=== PATIENT | male | born 1965 | race Caucasian/White ===

== ENCOUNTER → 2017-09-30 | Outpatient (CLI) | payer BC ==
--- NOTE | 2017-09-30 14:49 | Diagnostic Imaging Report ---
INDICATION: Ureteral stone. TIME OF EXAMINATION: 1:54 PM. COMPARISON: No prior studies are available for comparison. FINDINGS: The bowel gas pattern is unremarkable. No definite radiopaque renal calculi are seen. There is a slightly elongated calcific density in the left hemipelvis measuring approximately 4 mm x 1-2 mm. This may represent a distal left ureteric calculus. A rounded calcific density in the right hemipelvis likely represents a phlebolith. No other abnormalities are seen. IMPRESSION: Questionable distal left ureteral calculus. The study is otherwise unremarkable. Dictated by: Dictated on workstation # [id number]
== END ==
LOC: RAD 13:24
PROVIDERS: ATTEND Urology
DX: N20.1 Calculus of ureter (principal)
CPT/HCPCS: 74018

== ENCOUNTER → 2017-10-05 | Outpatient (CLI) | payer BC ==
[~2017-10-05] MED LIST: CIPR-225 PO; HYDR-3812 PO; HYDR-3875 PO; ONDN4T PO; PHEN-640 PO; TAMS0.4C98 PO
== END ==
LOC: PREOP 10:05
PROVIDERS: ATTEND Urology
DX: Z01.818 Encounter for other preprocedural examination (principal); N20.1 Calculus of ureter

== ENCOUNTER → 2017-10-05 | Outpatient (CLI) | payer BC ==
--- NOTE | 2017-10-05 15:30 | Diagnostic Imaging Report ---
INDICATION: Left ureteral stone. TIME OF EXAMINATION: 3:06 PM. COMPARISON: 09/30/2017. FINDINGS: The previously noted calcific density in the left hemipelvis appears to be unchanged in position and is again suggestive of a distal left ureteral calculus. A small rounded calcific density in the right hemipelvis is also seen, consistent with a phlebolith. No other urinary tract calculi are detected. The bowel gas pattern is unremarkable. IMPRESSION: Stable abdominal radiograph again demonstrating a probable distal left ureteral calculus, unchanged in position when compared with the examination from 5 days earlier. Dictated by: Dictated on workstation # [id number]
== END ==
LOC: RAD 14:30
PROVIDERS: ATTEND Urology
DX: N20.1 Calculus of ureter (principal)
CPT/HCPCS: 74018

== ENCOUNTER 2017-10-06 06:20 | Day surgery (SDC) | payer BC ==
[~2017-10-06] VITALS: Ht 177.8 cm; Wt 74.9 kg
[2017-10-06 06:45] VITALS: BP 128/93
[2017-10-06] MEDS ORDERED: cefTRIAXone 1 GM/NS 100 ML IVPB IV ONE ×4 (07:00→07:45)
[2017-10-06] MEDS ORDERED: CATHETER FLUSH 10 ML SYR IV PRN ×2 (07:00→07:45)
--- NOTE | 2017-10-06 07:09 | Diagnostic Imaging Report ---
EXAM: ABDOMEN/KUB 1VIEW INDICATION: Left kidney stone. COMPARISON: Abdominal radiograph 10/05/2017. FINDINGS: Nonspecific 0.5 cm radiopaque density in the left pelvis may represent a distal left ureteral stone. The remaining radiopaque densities in the pelvis have the appearance of phleboliths. No other suspicious radiopaque findings of renal stones. Nonspecific bowel gas pattern. No acute osseous findings. IMPRESSION: A 0.5 cm radiopaque density in the left pelvis is stable, possibly representing a distal left ureteral stone. Dictated by: Dictated on workstation # [id number]
--- NOTE | 2017-10-06 07:13 | Progress Note-Pre Operative ---
Pre-Operative Progress Note H&P Reviewed The H&P was reviewed, patient examined and no changes noted. Date Seen by Provider: Oct 06, 2017 Time Seen by Provider: 07:12 Date H&P Reviewed: Oct 06, 2017 Time H&P Reviewed: 07:12 Pre-Operative Diagnosis: LT DISTAL URETERAL AND RT RENAL STONES EYAD COLEY MD Oct 06, 2017 7:13 am
[2017-10-06] MEDS ORDERED: HYDR-3812 PO (07:59)
[2017-10-06] MEDS ORDERED: ONDN4T PO (07:59)
[2017-10-06] MEDS ORDERED: CIPR-225 PO ×2 (07:59→10:26)
[2017-10-06] MEDS ORDERED: TAMS0.4C98 PO ×2 (07:59→10:26)
[2017-10-06] MEDS ORDERED: LACTATED RINGERS 1,000 ML IV SCH (08:00)
[2017-10-06] MEDS ORDERED: ROCURONIUM 10 MG/ML 5 ML SYRINGE IV ONE (08:02)
[2017-10-06] MEDS ORDERED: proPOfol 200 MG/20 ML (DIPRIVAN) VIAL IV ONE (08:02)
[2017-10-06] MEDS ORDERED: LIDOCAINE PF 2% 5 ML (XYLOCAINE) VIAL ONE (08:02)
[2017-10-06] MEDS ORDERED: ONDANSETRON 4 MG/2 ML (SDV) Z0FRAN ONE (08:02)
[2017-10-06] MEDS ORDERED: MIDAZOLAM 2 MG/2 ML (VERSED) VIAL ONE (08:02)
[2017-10-06] MEDS ORDERED: fentaNYL INJECTION 100 MCG/2 ML AMP ONE (08:03)
[2017-10-06] MEDS ORDERED: SEVOFLURANE (ULTANE) 15 ML INHAL SOLN ONE ×2 (08:42→08:52)
[2017-10-06] MEDS ORDERED: NEOSTIGMINE 1 MG/ML 5 ML SYRINGE ONE (08:51)
[2017-10-06] MEDS ORDERED: GLYCOPYRROLATE 0.2 MG/ML (ROBINUL) 2 ML VIAL ONE (08:51)
--- NOTE | 2017-10-06 09:07 | Progress Note-Post Operative ---
Post-Operative Progess Note Surgeon (s)/Lang Interpreter (s) Surgeon EYAD COLEY MD Lang Interpreter: SAME Pre-Operative Diagnosis LT DISTAL URETERAL AND RT RENAL STONES Post-Operative Diagnosis SAME Procedure & Operative Findings Date of Procedure 10/06/17 Procedure Performed/Findings LT URETEROSCOPY WITH STONE MANIPULATION AND ATTEMPTED BASKET Anesthesia Type GENERAL Estimated Blood Loss Estimated blood loss (mL): N/A Specimens/Packing Specimens Removed N/A Packing: N/A EYAD COLEY MD Oct 06, 2017 9:07 am
--- NOTE | 2017-10-06 09:09 | Discharge Inst-Urology ---
Discharge Inst-Urology Discharge Medications New, Converted, or Re-newed RX: RX on Chart Patient Instructions/Follow Up Plan Please make appointment to been seen in office in 2 weeks. Strain all urines and save any stone passed Increase oral fluids for 48 hours and then as needed. Diet and Activity as tolerated. If questions or concerns contact your physician Or seek help at emergency department. EYAD COLEY MD Oct 06, 2017 9:09 am
[2017-10-06] MEDS ORDERED: ONDANSETRON 4 MG/2 ML (SDV) Z0FRAN IVP PRN (09:15)
[2017-10-06] MEDS ORDERED: HYDROmorphone 2 MG/ML VIAL (DILAUDID) IVP PRN (09:15)
[2017-10-06] MEDS ORDERED: PROMETHAZINE INJ 25 MG/ML (PHENERGAN) AMP IVP PRN (09:15)
[2017-10-06] MEDS ORDERED: morphine INJ 10 MG/ML 1ML (SYR OR VIAL) IVP PRN (09:15)
[2017-10-06] MEDS ORDERED: MEPERIDINE (DEMEROL) INJ 50 MG/ML IVP PRN (09:15)
[2017-10-06 10:10] VITALS: BP 124/87
[2017-10-06] MEDS ORDERED: PHEN-640 PO (10:26)
[2017-10-06] MEDS ORDERED: HYDR-3875 PO (10:26)
[2017-10-06 10:40] VITALS: BP 124/87
[2017-10-06 10:45] VITALS: BP 124/87
--- NOTE | 2017-10-06 13:37 | OPERATIVE REPORT ---
DATE OF SERVICE: 10/06/2017 PREOPERATIVE DIAGNOSIS: Left distal ureteral stone. POSTOPERATIVE DIAGNOSIS: Left distal ureteral stone. OPERATION PERFORMED: Left ureteroscopy, attempted stone basket and left ureteral stone manipulation, was attempted insertion of stent. SURGEON: Uzair Coley MD ANESTHESIA: General. COMPLICATIONS: None. DESCRIPTION OF PROCEDURE: Under satisfactory general anesthesia with the patient in lithotomy position, genitalia were prepped and draped in the usual sterile fashion. The 23-[place] cystoscope was introduced under vision. The anterior urethra was normal. The prostate revealed enlargement of the lateral lobe meeting in the midline causing bladder neck obstruction. The bladder revealed some trabeculation. Ureteric orifices were displaced upward and laterally. Using the foroblique lens, I dilated the left ureteral meatus and intramural portion where there a 6.9 [place] semirigid ureteroscope. There was narrowing of the ureter that I could not bypass with semi rigid ureteroscope. I could see the stone more proximal to it. So I passed a 3-[place] basket under vision and fluoroscopic guidance above the stone, but I was unable to engage and extract the stone; however, I was able to disimpact it or disengage it from the wall of the ureter in which it was embedded for quite some time. I injected some contrast. There was some mild extravasation from the area where the stone was impacted. I could not see any filling defects. I removed the ureteroscope and reinserted the cystoscope and attempted to pass a 6-[place] 26 cm stent. I was unable to and did not force the issue, so we did not make a hole in the ureter, discontinued further attempt and reinserted the cystoscope to enter the bladder, removed the cystoscope. The patient tolerated the procedure and anesthesia well and was sent to recovery room in stable condition. PLAN: We will see if he can pass the stone spontaneously. If not, then he will need to be referred to the place where they do flexible ureteroscopy where the smaller scope may be able to pass through the narrow ureter and address the stone. The findings were all explained to the family and later on to the patient. Job ID: [id number] DocumentID: [id number] Dictated Date: 10/06/2017 09:13:08 Junior Architect Date: 10/06/2017 13:37:02 Dictated By: UZAIR COLEY MD [facility]
--- NOTE | 2017-10-06 13:41 | Anesthesia-General Post-Op ---
General Patient Condition Mental Status/LOC: Same as Preop Cardiovascular: Satisfactory Nausea/Vomiting: Absent Respiratory: Satisfactory Pain: Controlled Complications: Absent Post Op Complications Complications None Follow Up Care/Instructions Patient Instructions None needed. Anesthesia/Patient Condition Patient Condition Patient was seen after surgery and prior to his discharge to home and he was doing well, no complaints, stable vital signs, no apparent adverse anesthesia problems. VADIM RODRIGUEZ DO Oct 06, 2017 13:41
== END 2017-10-06 11:00 | disposition home or self-care (01) ==
LOC: SDC 06:20
PROVIDERS: ATTEND Urology
DX: N20.1 Calculus of ureter (principal)
CPT/HCPCS: 74018; 87081

== ENCOUNTER 2018-08-10 17:00 | Outpatient (RCR) | payer BC ==
--- NOTE | 2018-08-10 17:44 | Diagnostic Imaging Report ---
INDICATION: Nephrolithiasis. Comparison made with prior examination from 10/06/2017. FINDINGS: The bowel gas pattern is nonspecific. There are no abnormal abdominal calcifications. There are unchanged calcified phleboliths in the pelvis. The osseous structures are unremarkable. IMPRESSION: Nonspecific bowel gas pattern. Dictated by: Dictated on workstation # [id number]
== END 2018-11-08 | disposition home or self-care (01) ==
LOC: RAD 17:00
PROVIDERS: ATTEND Urology
DX: Z87.442 Personal history of urinary calculi (principal)
CPT/HCPCS: 36415; 74018; 82140; 82340; 82507; 82570; 83735; 83945; 83986; 84105; 84133; 84300; 84392; 84560